=== PATIENT | female | born 1955 | race Two or more races ===

== ENCOUNTER 2017-05-27 14:24 | Emergency (ER) | payer OTHER ==
[2017-05-27 14:40] VITALS: RESP 18; TEMP 97.7
[2017-05-27 14:45] LABS: COLOR BROWN; LEUKOCYTE ESTERASE,URINE NEGATIVE (NEGATIVE); NITRITE,URINE POSITIVE (NEGATIVE); PH,URINE 5.5 (5.0-7.5)
[2017-05-27] MEDS ORDERED: ONDANSETRON 4 MG/2 ML VIAL IVP ONE (14:45)
[2017-05-27] MEDS ORDERED: NS 1,000 ML IV ONE (14:45)
--- NOTE | 2017-05-27 14:49 | EDPHY ---
H & P Stated Complaint: LLQ ABD PAIN STARTED WEDNESDAY WITH VOMITTING AND CHILLS - Medical/Surgical History Other PMH: ANXIETY/DEPRESSION, HYPOTHYROIDISM, TONSILECTOMY, PLASTIC SURGERY - Social History Smoking Status: Never smoked <Miah Da Silva - Last Filed: 05/27/17 14:56> - Social History Alcohol Use: Heavy (The patient admits to drinking 2-3 drinks a day.) <Marc Marvin - Last Filed: 05/27/17 19:25> Time Seen by Provider: 05/27/17 14:44 HPI/ROS: Chief Complaint: Abdominal pain HPI: 61-year-old woman with a history of diverticulitis in the past presenting with abdominal pain which started about 5 days ago. He has no left lower quadrant similar to her prior episodes of diverticulitis. Patient states this is different because 2 days ago she woke up with chills in the morning. She had some nausea vomiting and diarrhea at that time. Pain is about an 8/10. It is located left lower quadrant nonradiating. No melena or hematochezia. No urinary urgency or frequency. She has had decreased fluid intake because of her persistent nausea. No history of abdominal surgeries in the past ROS: 10 point Review of Systems is negative except as noted in the HPI. PMH: Diverticulitis, depression Social History: No smoking Family History: non-contributory Physical Exam: Gen: Awake, Alert, uncomfortable appearing HEENT: Nose: no rhinorrhea Eyes: PERRLA, EOMI Mouth: Moist mucosa Neck: Supple, no JVD Chest: nontender, lungs clear to auscultation Heart: S1, S2 normal, no murmur Abd: Soft, left lower quadrant tenderness to palpation with voluntary guarding Back: no CVA tenderness, no midline tenderness Ext: no edema, non-tender Skin: no rash Neuro: CN II-XII intact, Sensation grossly intact, Strength 5/5 in bilateral upper and lower extremities (Miah Da Silva) Constitutional: Initial Vital Signs Temperature (C) 36.5 C 05/27/17 14:39 Heart Rate 111 H 05/27/17 14:39 Respiratory Rate 18 05/27/17 14:39 Blood Pressure 129/84 H 05/27/17 14:39 O2 Sat (%) 94 05/27/17 14:39 O2 Delivery Mode Room Air Allergies/Adverse Reactions: No Known Allergies Allergy (Unverified 05/27/17 14:37) Home Medications: Medication Instructions Recorded Amox Tr/Potassium Clavulanate 2 each PO BID #28 tab 05/27/17 [Augmentin 1000MG ER Tablet (*)] Clonazepam 05/27/17 Levothyroxine 05/27/17 Avard Carbonate 05/27/17 Propranolol HCl 05/27/17 Venlafaxine HCl 05/27/17 traMADol [Ultram 50 mg (*)] 50 - 100 mg PO Q4 PRN #15 tab 05/27/17 Medical Decision Making <Miah Da Silva - Last Filed: 05/27/17 14:56> <Marc Marvin - Last Filed: 05/27/17 19:25> - Diagnostics Imaging Results: Imaging Impressions Abdomen CT 05/27/17 15:01 Impression: Mild acute diverticulitis involving the distal descending colon, without abscess or perforation. Results called to Dr. Marc Marvin at 4:15 p.m. ED Course/Re-evaluation: 61-year-old woman with a history of diverticulitis in the past presenting with left lower quadrant pain nausea vomiting and chills. Symptoms are consistent with her prior episodes of diverticulitis. She is quite tender and given the chills and concerned about the possibility of perforation or abscess. She will likely require CT scan of abdomen pelvis. I have ordered labs including urinalysis, CBC and chemistry. L of normal saline IV bolus, ondansetron and morphine have also been ordered. Patient signed out to Dr. Marvin pending laboratory results, re-evaluation and possible CT scan. (Miah Da Silva) At 3:10 p.m. I met the patient and she reports significant relief of her pain from medications that were administered shortly prior to my arrival in the room. She does confirm that this is the worst pain by far she has had from an episode of diverticulitis in that this 1 radiates to her back unlike prior episodes. After morphine the patient has mild to moderate left lower quadrant tenderness but does seem to have some rebound tenderness to the area. Given Dr. Coulter concern prior to her being treated with analgesics and that this is the worst episode she has had no radiating to her back think that she does warrant CT imaging and I counseled regarding this. Initial differential diagnosis includes diverticulitis, diverticular abscess, bowel perforation, pyelonephritis, cystitis, constipation I discussed the patient's CT scan findings of diverticulitis with her without evidence of perforation or abscess. The patient reported that her pain was recurring after initial analgesics and is treated with Toradol 30 mg IV with further relief. Given the patient's regular alcohol use and multiple other medications I think it is dent to have single drug therapy for diverticulitis and will treat her with Augmentin ER. I counseled her regarding this. At the time of discharge her vital signs are normalized and she is comfortable. (Marc Marvin) - Data Points Laboratory Results: Laboratory Results 05/27/17 14:59 05/27/17 14:59 05/27/17 05/27/17 05/27/17 14:59 14:59 14:45 WBC 6.94 10^3/uL 10^3/uL (3.80-9.50) RBC 4.77 10^6/uL 10^6/uL (4.18-5.33) Hgb 15.3 g/dL g/dL (12.6-16.3) Hct 46.9 % % (38.0-47.0) MCV 98.3 fL fL (81.5-99.8) MCH 32.1 pg pg (27.9-34.1) MCHC 32.6 g/dL g/dL (32.4-36.7) RDW 13.2 % % (11.5-15.2) Plt Count 219 10^3/uL 10^3/uL (150-400) MPV 10.8 fL fL (8.7-11.7) Neut % (Auto) 81.9 % H % (39.3-74.2) Lymph % (Auto) 9.2 % L % (15.0-45.0) [place] % (Auto) 5.5 % % (4.5-13.0) Eos % (Auto) 2.4 % % (0.6-7.6) Baso % (Auto) 0.4 % % (0.3-1.7) Nucleat RBC Rel Count 0.0 % % (0.0-0.2) Absolute Neuts (auto) 5.68 10^3/uL 10^3/uL (1.70-6.50) Absolute Lymphs (auto) 0.64 10^3/uL L 10^3/uL (1.00-3.00) Absolute Monos (auto) 0.38 10^3/uL 10^3/uL (0.30-0.80) Absolute Eos (auto) 0.17 10^3/uL 10^3/uL (0.03-0.40) Absolute Basos (auto) 0.03 10^3/uL 10^3/uL (0.02-0.10) Absolute Nucleated RBC 0.00 10^3/uL 10^3/uL (0-0.01) Immature Gran % 0.6 % % (0.0-1.1) Immature Gran # 0.04 10^3/uL 10^3/uL (0.00-0.10) Sodium 138 mEq/L mEq/L (134-144) Potassium 4.1 mEq/L mEq/L (3.5-5.2) Chloride 101 mEq/L mEq/L (97-110) Carbon Dioxide 22 mEq/l mEq/l (22-31) Anion Gap 15 mEq/L mEq/L (8-16) BUN 12 mg/dL mg/dL (7-23) Creatinine 1.1 mg/dL H mg/dL (0.6-1.0) Estimated GFR 50 Glucose 130 mg/dL H mg/dL (70-100) Calcium 10.1 mg/dL mg/dL (8.5-10.4) Urine Color BROWN Urine Appearance CLOUDY Urine pH 5.5 (5.0-7.5) Ur Specific [place] >= 1.030 (1.002-1.030) Urine Protein 1+ H (NEGATIVE) Urine Ketones NEGATIVE (NEGATIVE) Urine Blood TRACE H (NEGATIVE) Urine Nitrate POSITIVE H (NEGATIVE) Urine Bilirubin POSITIVE H (NEGATIVE) Urine Urobilinogen 1.0 EU EU (0.2-1.0) Ur Leukocyte Esterase NEGATIVE (NEGATIVE) Urine RBC 1-3 /hpf /hpf (0-3) Urine WBC 15-25 /hpf H /hpf (0-3) Ur Epithelial Cells 4+ /lpf H /lpf (NONE-1+) Urine Bacteria TRACE /hpf H /hpf (NONE SEEN) Urine Mucus 4+ /lpf H /lpf (NONE-1+) Urine Yeast OCCASIONAL /hpf H /hpf (NONE SEEN) Urine Glucose NEGATIVE (NEGATIVE) Medications Given: Discontinued Medications Sodium Chloride (Ns) 1,000 mls @ 0 mls/hr IV ONCE ONE; Wide Open PRN Reason: Protocol Stop: 05/27/17 14:46 Last Admin: 05/27/17 14:56 Dose: 1,000 mls Ketorolac Tromethamine (Toradol) 30 mg IVP EDNOW ONE Stop: 05/27/17 16:25 Last Admin: 05/27/17 16:32 Dose: 30 mg Morphine Sulfate (Morphine) 4 mg IVP ONCE ONE Stop: 05/27/17 14:46 Last Admin: 05/27/17 14:56 Dose: 4 mg Ondansetron HCl (Zofran) 4 mg IVP EDNOW ONE Stop: 05/27/17 14:46 Last Admin: 05/27/17 14:56 Dose: 4 mg Departure <Miah Da Silva - Last Filed: 05/27/17 14:56> <Marc Marvin - Last Filed: 05/27/17 19:25> - Departure Disposition: Home, Routine, Self-Care Clinical Impression: Diverticulitis Qualifiers: Diverticulitis site: large intestine Diverticulitis bleeding: without bleeding Diverticulitis complication: without perforation or abscess Qualified Code(s): K57.32 - Diverticulitis of large intestine without perforation or abscess without bleeding Condition: Good Instructions: Diverticulitis (ED), Diverticulitis Diet (ED) Additional Instructions: Diagnosis: Acute diverticulitis Plan: Light diet until he feel improved Ibuprofen and Tylenol for pain. Wait until 10 30 pm for next dose of ibuprofen since you had Toradol here at 4:30 a.m. which is a similar medication. High dose Augmentin antibiotic as prescribed. Be sure to eat yogurt or take a probiotic or both to prevent diarrhea while on this medication. Tramadol in addition if needed for pain control. No driving, alcohol work on tramadol. Take a stool softener while. On tramadol to prevent constipation. Follow up with primary care physician for any ongoing symptoms despite the treatment plan Return to the emergency department for any significant worsening despite the treatment plan. Referrals: [facility],UNKNOWN [Other] - As per Instructions Prescriptions: Amox Tr/Potassium Clavulanate [Augmentin 1000MG ER Tablet (*)] 2 each PO BID # 28 tab traMADol [Ultram 50 mg (*)] 50 - 100 mg PO Q4 PRN #15 tab PRN Reason: breakthrough pain
[2017-05-27 14:59] LABS: BACTERIA TRACE /hpf (NONE SEEN); MUCUS 4+ /lpf (NONE-1+); WBC,URINE 15-25 /hpf (0-3); YEAST OCCASIONAL /hpf (NONE SEEN)
[2017-05-27 15:02] LABS: % IMMATURE GRANULYOCYTES 0.6 % (0.0-1.1); ABSOLUTE IMMATURE GRANULOCYTES 0.04 10^3/uL (0.00-0.10); ADD DIFF? NO; ADD MORPH? NO; ADD SCAN? YES; ATYPICAL LYMPHOCYTE FLAG 0 (0-99); FRAGMENT RBC FLAG 0 (0-99); HEMATOCRIT 46.9 % (38.0-47.0); HEMOGLOBIN 15.3 g/dL (12.6-16.3); LEFT SHIFT FLG 0 (0-99); LIPEMIA HEMOLYSIS FLAG 80 (0-99); MEAN CELL HEMOGLOBIN 32.1 pg (27.9-34.1); MEAN CELL HEMOGLOBIN CONCENTR. 32.6 g/dL (32.4-36.7); MEAN CELL VOLUME 98.3 fL (81.5-99.8); MEAN PLATELET VOLUME 10.8 fL (8.7-11.7); PLATELET COUNT 219 10^3/uL (150-400); RED BLOOD CELL COUNT 4.77 10^6/uL (4.18-5.33); RED CELL DISTRIBUTION WIDTH 13.2 % (11.5-15.2)
[2017-05-27] MEDS ORDERED: IOPAMIDOL (ISOVUE-300) 100 ML BTL ONE (15:06)
[2017-05-27 15:09] LABS: PLATELET CLUMPS FLAG 300 (0-99)
[2017-05-27 15:13] LABS: CALCIUM 10.1 mg/dL (8.5-10.4); CREATININE 1.1 mg/dL (0.6-1.0); POTASSIUM 4.1 mEq/L (3.5-5.2)
[2017-05-27 15:26] LABS: SCAN NEGATIVE
[2017-05-27] MEDS ORDERED: KETOROLAC 30 MG/1 ML SDV IVP ONE (16:24)
[2017-05-27 16:35] VITALS: O2SAT 93
[2017-05-27 17:13] VITALS: BP 110/78; PULSE 103
== END 2017-05-27 16:50 | disposition home or self-care (01) ==
LOC: CED 14:24
DX: K57.32 Diverticulitis of large intestine without perforation or abscess without bleeding (principal); E86.9 Volume depletion, unspecified
CPT/HCPCS: 74177; 96361; 96374; 99285; J1885; J2405; Q9967; 80048-PO; 81003-PO; 81015-PO; 85025-PO